=== PATIENT | female | born 1960 | race American Indian/Alaskan Native ===

== ENCOUNTER 2019-03-18 11:26 | Emergency (ER) | payer SELFPAY ==
--- NOTE | 2019-03-18 11:48 | Emergency Department Report ---
Blank Doc - Documentation Documentation: This is a 58-year-old female that presents with lower back pain and right knee pain. Stated had a fall 2 months ago and now is getting worse. Denies f/u with a provider. This initial assessment/diagnostic orders/clinical plan/treatment(s) is/are subject to change based on patient's health status, clinical progression and re- assessment by fellow clinical providers in the ED. Further treatment and workup at subsequent clinical providers discretion. Patient/guardians urged not to elope from the ED as their condition may be serious if not clinically assessed and managed. Initial orders include: 1- Patient sent to [facility] for further evaluation and treatment 2- xrays
--- NOTE | 2019-03-18 12:58 | XRay Report ---
RIGHT KNEE 3 VIEWS INDICATION / CLINICAL INFORMATION: pain s/p fall COMPARISON: None available. FINDINGS: BONES / JOINT(S): There is mild degenerative involving all 3 compartments. There is mild joint space narrowing and there is marginal osteophyte formation no fracture or subluxation is seen. SOFT TISSUES: No significant abnormality. ADDITIONAL FINDINGS: There is an effusion in the suprapatella bursa. Signer Name: Francisco Pena MD Signed: 03/18/2019 12:54 PM Workstation Name: [id number]
--- NOTE | 2019-03-18 13:07 | XRay Report ---
LUMBOSACRAL SPINE 3 VIEWS INDICATION: pain s/p fall. COMPARISON: None. IMPRESSION: Normal alignment. No significant discogenic changes. Lower lumbar facet joint arthropat hy. No acute osseous or soft tissue abnormality. Signer Name: Andriy Luz MD Signed: 03/18/2019 1:03 PM Workstation Name: [id number]
--- NOTE | 2019-03-18 13:58 | Emergency Department Report ---
HPI - General Chief Complaint: Back Pain/Injury Time Seen by Provider: 03/18/19 11:47 - HPI HPI: 58-year-old female presents to the emergency department with complaint of right knee pain and low to mid back pain that is an acute on chroni c condition. Recently it has been going on for the past 2 months but worsened over the past few days. Patient says that she has some chronic back pain after falling down some stairs twice in the past. There is been no recent trauma to either area. She does not currently have a primary care physician. She has been taking some Advil for pain with some temporary relief. No recent travel or sick contacts at home. ED Past Medical Hx - Past Medical History Previous Medical History?: Yes Additional medical history: chronic back pain - Surgical History Past Surgical History?: No - Social History Smoking Status: Never Smoker Substance Use Type: None - Medications Home Medications: Home Medications Medication Instructions Recorded Confirmed Last Taken Type Amlodipine Besylate [Norvasc] 5 mg PO QDAY #20 tablet 03/18/19 Unknown Rx Cyclobenzaprine [Flexeril] 10 mg PO TID PRN #12 tablet 03/18/19 Unknown Rx Ibuprofen [Motrin 800 MG tab] 800 mg PO Q8HR PRN #20 tablet 03/18/19 Unknown Rx ED Review of Systems ROS: Stated complaint: RT KNEE/BACK PAIN Other details as noted in HPI Comment: All other systems reviewed and negative Constitutional: denies: chills, fever Genitourinary: dysuria. denies: hematuria Musculoskeletal: back pain, joint swelling, arthralgia Neurological: denies: weakness, numbness, paresthesias Physical Exam - Physical Exam Vital Signs: Vital Signs 03/18/19 03/18/19 11:44 13:48 Temperature 98 F Pulse Rate 90 74 Respiratory 18 16 Rate Blood Pressure 201/94 Blood Pressure 181/96 [Left] O2 Sat by Pulse 97 98 Oximetry Physical Exam: GENERAL: The patient is well-developed well-nourished. HENT: Normocephalic. Atraumatic. Patient has moist mucous membranes. EYES: Extraocular motions are intact. NECK: Supple. Trachea is midline. CHEST/LUNGS: Clear to auscultation. There is no respiratory distress noted. HEART/CARDIOVASCULAR: Regular. There is no tachycardia. There is no murmur. ABDOMEN: Abdomen is soft, nontender. Patient has normal bowel sounds. There is no abdominal distention. SKIN: Skin is warm and dry. There is some mild anterior right knee swelling. NEURO: The patient is awake, alert, and oriented. The patient is cooperative. The patient has no focal neurologic deficits. The patient has normal speech. MUSCULOSKELETAL: There is some tenderness to palpation to the anterior and posterior right knee. Negative anterior and posterior drawer test. There is no limitation range of motion. BACK: No midline thoracic or lumbar tenderness to palpation, step-off or deformity. There is some reproducible lumbar and lower thoracic bilateral paraspinal tenderness to palpation with associated taut musculature. ED Course Vital Signs 03/18/19 03/18/19 11:44 13:48 Temperature 98 F Pulse Rate 90 74 Respiratory 18 16 Rate Blood Pressure 201/94 Blood Pressure 181/96 [Left] O2 Sat by Pulse 97 98 Oximetry ED Medical Decision Making - Radiology Data Radiology results: report reviewed RIGHT KNEE 3 VIEWS INDICATION / CLINICAL INFORMATION: pain s/p fall COMPARISON: None available. FINDINGS: BONES / JOINT(S): There is mild degenerative involving all 3 compartments. There is mild joint space narrowing and there is marginal osteophyte formation no fracture or subluxation is seen. SOFT TISSUES: No significant abnormality. ADDITIONAL FINDINGS: There is an effusion in the suprapatella bursa. LUMBOSACRAL SPINE 3 VIEWS INDICATION: pain s/p fall. COMPARISON: None. IMPRESSION: Normal alignment. No significant discogenic changes. Lower lumbar facet joint arthropathy. No acute osseous or soft tissue abnormality. DUPLEX DOPPLER LOWER EXTREMITY VEINS, RIGHT INDICATION: Right lower extremity pain and swelling for 5 months. TECHNIQUE: Duplex doppler imaging was performed through the veins of the right lower extremity using venous compression and other maneuvers. COMPARISON: No relevant prior imaging study available. FINDINGS: Right Common femoral vein: Negative. Right Superficial femoral vein: Negative. Right Popliteal vein: Negative. Right Calf veins: Negative. Additional findings: None.. IMPRESSION: No sonographic evidence for DVT in the right lower extremity. - Medical Decision Making This patient presents with some atraumatic right knee pain and low to mid back pain. She does appear to have some mild right anterior knee swelling at the knee joint appears stable. She does not have any midline tenderness to palpation of the lumbar thoracic spine but does have some reproducible tenderness along the paraspinal muscles in this area with very taut musculature. X-rays done of right knee that shows some osteoarthritis and a suprapatellar joint effusion. X-ray of the lumbar spine does not show any fracture, subluxation or any acute process. Right lower extremity Doppler did not show any evidence for DVT. Patient presented with very elevated blood pressure. Patient denies any history of hypertension and just says it is secondary to her discomfort. However, given the level of the blood pressure reading, the patient will be started on some mid dose amlodipine. We discussed staying away from foods that are high in salt and caffeinated products. We discussed keeping a blood pressure log. She will be given a referral for orthopedist for her knee and back pain, but has also been given a referral for primary care regarding her hypertension. Patient was able to ambulate and appears stable. She will return to the ER if any worsening of her symptoms or any acute distress. - Differential Diagnosis osteoarthritis, joint effusion, fracture, muscle spasm Critical Care Time: No Critical care attestation.: If time is entered above; I have spent that time in minutes in the direct care of this critically ill patient, excluding procedure time. ED Disposition Clinical Impression: Elevated blood pressure reading, Suprapatellar effusion of knee Back pain Qualifiers: Back pain location: low back pain Chronicity: unspecified Back pain laterality: bilateral Sciatica presence: without sciatica Qualified Code(s): M54.5 - Low back pain Right knee pain Qualifiers: Chronicity: unspecified Qualified Code(s): M25.561 - Pain in right knee Osteoarthritis, knee Qualifiers: Osteoarthritis type: unspecified Laterality: right Qualified Code(s): M17.11 - Unilateral primary osteoarthritis, right knee Disposition: DC-01 TO HOME OR SELFCARE Is pt being admited?: No Condition: Stable Instructions: Osteoarthritis (ED), Knee Effusion (ED), Arthralgia (ED), Back Pain (ED) Additional Instructions: Please follow up with a primary care physician in the next few days. Try and stay away from foods that are high in salt and caffeinated products to help her blood pressure. Keep a blood pressure log. I am starting you on a blood pressure medication called Norvasc/amlodipine. It is taken once per day, usually in the morning. I am giving you a referral for 2 different orthopedic groups, Dr. Harding and [facility]. Please follow-up with an orthopedist regarding your knee pain, knee effusion, and back pains. Return to the emergency Department with any worsening of your symptoms or any acute distress. You have been prescribed a medication that is sedating and therefore should not be taken prior to driving, working, and responsible for children and in no way should be mixed with alcohol of any quantity. Prescriptions: Cyclobenzaprine [Flexeril] 10 mg PO TID PRN #12 tablet PRN Reason: Muscle Spasm Ibuprofen [Motrin 800 MG tab] 800 mg PO Q8HR PRN #20 tablet PRN Reason: Pain , Severe (7-10) Amlodipine Besylate [Norvasc] 5 mg PO QDAY #20 tablet Referrals: PIERRE HARDING MD [Staff Physician] - 2-3 Days [facility] [Provider Group] - 2-3 Days ROEL ALEXANDRE MD [Staff Physician] - 2-[address] [facility] [Outside] - 2-3 Days Time of Disposition: 15:23
[2019-03-18] MEDS ORDERED: NORVASC PO ONE (13:59)
--- NOTE | 2019-03-18 15:10 | Vascular Lab Report ---
DUPLEX DOPPLER LOWER EXTREMITY VEINS, RIGHT INDICATION: Right lower extremity pain and swelling for 5 months. TECHNIQUE: Duplex doppler imaging was performed through the veins of the right lower extremity using venous comp ression and other maneuvers. COMPARISON: No relevant prior imaging study available. FINDINGS: Right Common femoral vein: Negative. Right Superficial femoral vein: Negative. Right Popliteal vein: Negative. Right Calf veins: Negative. Additional findings: None.. IMPRESSION: No sonographic evidence for DVT in the right lower extremity. Signer Name: Tito Eaton Jr, MD Signed: 03/18/2019 3:06 PM Workstation Name: [id number]
[2019-03-18 15:28] VITALS: BP 194/87
== END 2019-03-18 15:35 | disposition home or self-care (01) ==
LOC: ED 11:26
DX: M54.5 Low back pain (principal); M25.461 Effusion, right knee; I10 Essential (primary) hypertension; G89.29 Other chronic pain
CPT/HCPCS: 72100; 99283

== ENCOUNTER 2020-09-30 16:56 | Emergency (ER) | payer SELFPAY ==
--- NOTE | 2020-09-30 17:29 | Emergency Department Report ---
ED Lower Extremity HPI - General Stated Complaint: FOOT AND BACK PAIN Time Seen by Provider: 09/30/20 17:16 - History of Present Illness Initial Comments: 60-year-old female asthma department complaining of 1 week prior history of blunt trauma to the left foot resulting in pain to the lateral aspect of the foot and toe. She reports no numbness, no tingling but there is pain with palpation movement and range of motion. She is also been experiencing some continued lower back pain which has been going on off and on for over 3 years and progression fashion she reports that there is no character changes. There is no saddle paresthesia, no loss of bowel bladder, no hematuria, no dysuria, no loss of strength to her lower extremities. MD Complaint: foot injury -: week(s) (1) Improves With: nothing Worsens With: nothing Context: direct blow Associated Symptoms: swelling, able to partially bear weight - Related Data Previous Rx's Medication Instructions Recorded Last Taken Type Amlodipine Besylate [Norvasc] 5 mg PO QDAY #20 tablet 03/18/19 Unknown Rx Cyclobenzaprine [Flexeril] 10 mg PO TID PRN #12 tablet 03/18/19 Unknown Rx Ibuprofen [Motrin 800 MG tab] 800 mg PO Q8HR PRN #20 tablet 03/18/19 Unknown Rx methOCARBAMOL [Robaxin TAB] 500 mg PO Q6H PRN #30 tablet 09/30/20 Unknown Rx Allergies Allergy/AdvReac Type Severity Reaction Status Date / Time No Known Allergies Allergy Unverified 03/18/19 11:49 ED Review of Systems ROS: Stated complaint: FOOT AND BACK PAIN Other details as noted in HPI Comment: All other systems reviewed and negative ED Past Medical Hx - Past Medical History Additional medical history: chronic back pain - Social History Smoking Status: Never Smoker Substance Use Type: None - Medications Home Medications: Home Medications Medication Instructions Recorded Confirmed Last Taken Type Amlodipine Besylate [Norvasc] 5 mg PO QDAY #20 tablet 03/18/19 Unknown Rx Cyclobenzaprine [Flexeril] 10 mg PO TID PRN #12 tablet 03/18/19 Unknown Rx Ibuprofen [Motrin 800 MG tab] 800 mg PO Q8HR PRN #20 tablet 03/18/19 Unknown Rx methOCARBAMOL [Robaxin TAB] 500 mg PO Q6H PRN #30 tablet 09/30/20 Unknown Rx ED Physical Exam - General General appearance: alert, in no apparent distress - Head Head exam: Present: atraumatic, normocephalic - Eye Eye exam: Present: normal appearance, PERRL, EOMI Pupils: Present: normal accommodation - ENT ENT exam: Present: normal exam, normal orophraynx, mucous membranes moist, TM's normal bilaterally - Neck Neck exam: Present: normal inspection, full ROM - Respiratory Respiratory exam: Present: normal lung sounds bilaterally. Absent: respiratory distress - Cardiovascular Cardiovascular Exam: Present: regular rate, normal rhythm. Absent: systolic murmur, diastolic murmur, rubs, gallop - GI/Abdominal GI/Abdominal exam: Present: soft, normal bowel sounds - Extremities Exam Extremities exam: Present: normal inspection - Expanded Lower Extremity Exam Left Foot/Toe exam: Present: tenderness, swelling, ecchymosis, tenderness at base of 5th metatarsal (and near distal aspect ) Neuro vascular tendon exam: Present: no vascular compromise. Absent: abnormal cap refill, motor deficit, sensory deficit, tendon deficit - Back Exam Back exam: Present: normal inspection - Neurological Exam Neurological exam: Present: alert, oriented X3 - Psychiatric Psychiatric exam: Present: normal affect, normal mood - Skin Skin exam: Present: warm, dry, intact, normal color. Absent: rash ED Lower Extremity MDM - Radiology Data Radiology results: report reviewed Referring Physician:UMM ALBERTPatient Name:ELIS MCCANNPatient ID:[id number] of :[id number]:FemaleAccession:[id number] Date:6452-16-46Phnafr Status:Finalized Findings [address] [address] XRay Report Signed Patient: ELIS MCCANN MR#: [id number] : 1960 Acct:[id number] Age/Sex: 60 / F ADM Date: 09/30/20 Loc: ED Attending Dr: Ordering Physician: RHINA BUSTAMANTE Date of Service: 09/30/20 Procedure(s): XR foot 3+V LT Accession Number(s): [id number] cc: RHINA BUSTAMANTE Fluoro Time In Minutes: LEFT FOOT 3 VIEWS INDICATION / CLINICAL INFORMATION: Posterior and lateral left foot pain after blunt trauma 1 month ago. COMPARISON: None available. FINDINGS: BONES and JOINT(S): There is an acute/subacute mildly displaced transverse fracture through the base of the proximal phalanx of the fifth toe. No dislocation. An inferior calcaneal enthesophyte is noted without other significant arthritis. SOFT TISSUES: No significant abnormality. ADDITIONAL FINDINGS: None. IMPRESSION: Acute/subacute left fifth toe fracture. Signer Name: Isidro Hong MD Signed: 09/30/2020 6:11 PM Workstation Name: [id number] Transcribed By: MN Dictated By: Isidro Hong MD Electronically Authenticated By: Isidro Hong MD Signed Date/Time: 09/30/201810 DD/ 08 TD/TT: - Medical Decision Making 60-year-old female with 1 week status post blunt trauma to injury with a subacute fracture examination to the fifth toe joint is stable gait is stable no. Toe was elia taped have advised her on need to protect the digital and follow-up with podiatry hold for PCP to ensure that it is healing properly. Also advised need to follow-up with the orthopedic for her chronic back pain which is been going on for some years. Critical care attestation.: If time is entered above; I have spent that time in minutes in the direct care of this critically ill patient, excluding procedure time. ED Disposition Clinical Impression: Toe fracture, left, Lumbago Disposition: DC-01 TO HOME OR SELFCARE Is pt being admited?: No Does the pt Need Aspirin: No Condition: Stable Instructions: Chronic Back Pain, [id number], Toe Fracture, [id number], Back Injury Prevention Prescriptions: methOCARBAMOL [Robaxin TAB] 500 mg PO Q6H PRN #30 tablet PRN Reason: back pain Referrals: PIERRE LAYNE MD [Staff Physician] - 3-5 Days
[2020-09-30 17:38] VITALS: BP 206/101
--- NOTE | 2020-09-30 18:16 | XRay Report ---
LEFT FOOT 3 VIEWS INDICATION / CLINICAL INFORMATION: Posterior and lateral left foot pain after blunt trauma 1 month ago. COMPARISON: None available. FINDINGS: BONES and JOINT(S): There is an acute/subacute mildly displaced transverse fracture through the base of the proximal phalanx of the fifth toe. No dislocation. An inferior calcaneal enthesophyte is noted without other significant arthritis. SOFT TISSUES: No significant abnormality. ADDITIONAL FINDINGS: None. IMPRESSION: Acute/subacute left fifth toe fracture. Signer Name: Isidro Hong MD Signed: 09/30/2020 6:11 PM Workstation Name: [id number]
[2020-09-30] MEDS ORDERED: cloNIDine 0.2 MG TAB PO STA (18:17)
== END 2020-09-30 19:05 | disposition home or self-care (01) ==
LOC: ED 16:56
DX: S92.592A Other fracture of left lesser toe(s), initial encounter for closed fracture (principal); M54.5 Low back pain; Z79.899 Other long term (current) drug therapy; X58.XXXA Exposure to other specified factors, initial encounter; Y93.89 Activity, other specified; Y92.89 Other specified places as the place of occurrence of the external cause; Y99.8 Other external cause status
CPT/HCPCS: 99283